=== PATIENT | female | born 1945 | race Caucasian/White ===

== ENCOUNTER → 2016-11-27 | Outpatient (CLI) | payer OTHER | LOC: FIMAGING 14:26 | DX: Z12.31 Encounter for screening mammogram for malignant neoplasm of breast (principal) | CPT/HCPCS: G0202 ==

== ENCOUNTER → 2017-04-15 | Outpatient (CLI) | payer OTHER | LOC: FIMAGING 11:32 | PROVIDERS: ATTEND Internal Medicine | DX: R06.02 Shortness of breath (principal) ==

== ENCOUNTER 2017-05-14 09:03 | Day surgery (SDC) | payer OTHER ==
[2017-05-14] MEDS ORDERED: diphenhydrAMINE 25 MG CAP PO ONE ×2 (09:09→09:41)
[2017-05-14] MEDS ORDERED: MIDAZOLAM 2 MG/2 ML VIAL IVP ONE (09:09)
[2017-05-14] MEDS ORDERED: BENZOCAINE UNIT DOSE SPRAY HURRICAINE MM ONE (09:09)
[2017-05-14] MEDS ORDERED: NS 1,000 ML IV ONE (09:09)
[2017-05-14] MEDS ORDERED: DIAZEPAM 5 MG TAB PO ONE (09:09)
[2017-05-14] MEDS ORDERED: fentaNYL 100 MCG/2 ML INJ IVP ONE (09:09)
[2017-05-14] MEDS ORDERED: FAMOTIDINE 20 MG TAB PO ONE (09:09)
[2017-05-14] MEDS ORDERED: ASPIRIN EC 325 MG TAB PO ONE ×2 (09:09→09:41)
--- NOTE | 2017-05-14 09:35 | CPEKG ---
Heart Rate: 78 RR Interval: 769 P-R Interval: 176 QRSD Interval: 92 QT Interval: 416 QTC Interval: 474 P [place]: 75 QRS [place]: 51 T Wave [place]: 48 EKG Severity - ABNORMAL ECG - EKG Impression: SINUS RHYTHM EKG Impression: MULTIPLE VENTRICULAR PREMATURE COMPLEXES Electronically Signed By: Wagner Martin 14-May-2017 17:15:05
[2017-05-14] MEDS ORDERED: FAMOTIDINE 20 MG TAB ONE (09:41)
[2017-05-14] MEDS ORDERED: DIAZEPAM 5 MG TAB ONE (09:42)
[2017-05-14 09:52] LABS: % IMMATURE GRANULYOCYTES 0.2 % (0.0-1.1); ABSOLUTE IMMATURE GRANULOCYTES 0.01 10^3/uL (0.00-0.10); ADD DIFF? NO; ADD MORPH? NO; ADD SCAN? NO; ATYPICAL LYMPHOCYTE FLAG 0 (0-99); FRAGMENT RBC FLAG 0 (0-99); HEMATOCRIT 40.2 % (38.0-47.0); HEMOGLOBIN 13.5 g/dL (12.6-16.3); LEFT SHIFT FLG 0 (0-99); LIPEMIA HEMOLYSIS FLAG 80 (0-99); MEAN CELL HEMOGLOBIN 32.3 pg (27.9-34.1); MEAN CELL HEMOGLOBIN CONCENTR. 33.6 g/dL (32.4-36.7); MEAN CELL VOLUME 96.2 fL (81.5-99.8); MEAN PLATELET VOLUME 11.7 fL (8.7-11.7); PLATELET CLUMPS FLAG 10 (0-99); PLATELET COUNT 179 10^3/uL (150-400); RED BLOOD CELL COUNT 4.18 10^6/uL (4.18-5.33); RED CELL DISTRIBUTION WIDTH 12.9 % (11.5-15.2)
[2017-05-14 10:00] LABS: INR 1.07 (0.83-1.16); PROTIME(PATIENT) 13.8 SEC (12.0-15.0)
[2017-05-14 10:09] LABS: ANION GAP 12 mEq/L (8-16); CALCIUM 9.8 mg/dL (8.5-10.4); CARBON DIOXIDE 23 mEq/l (22-31); CHLORIDE 103 mEq/L (97-110); CHOLESTEROL 182 mg/dL (140-220); CHOLESTEROL/HDL RATIO 3.43 RATIO (1.00-4.44); CREATININE 0.9 mg/dL (0.6-1.0); GLOMERULAR FILTRATION RATE > 60; GLUCOSE 118 mg/dL (70-100); HIGH DENSITY LIPOPROTEIN 53 mg/dL (40-85); LDL/HDL RATIO 1.66 RATIO (1.00-3.22); LOW DENSITY LIPOPROTEIN 88 mg/dL (80-100); NON-HIGH DENSITY LIPOPROTEIN 129 mg/dL (90-129); POTASSIUM 3.9 mEq/L (3.5-5.2); SODIUM 138 mEq/L (134-144); TRIGLYCERIDE 208 mg/dL (35-135); VERY LOW DENSITY LIPOPROTEINS 41 mg/dL (8-25)
[2017-05-14] MEDS ORDERED: MIDAZOLAM 2 MG/2 ML VIAL ONE ×2 (10:36→11:22)
[2017-05-14] MEDS ORDERED: fentaNYL 100 MCG/2 ML INJ ONE ×2 (10:37→11:22)
[2017-05-14] MEDS ORDERED: LIDOCAINE 1% 300 MG/30 ML SDV ONE (11:22)
[2017-05-14] MEDS ORDERED: IOPAMIDOL (ISOVUE-370) 150 ML BTL IV ONE (11:22)
--- NOTE | 2017-05-14 12:33 | PDDXCAT ---
Diagnostic Cath Note - . Date: 05/14/17 Radiopharmacist: Julio Indication: other (CAD with prior CABG, severe MR with prior MV repair, and NYHA class II to III CHF symptoms) - Procedure Access: right groin Procedure: left heart catheterization, coronary angiography, left ventriculogram , right heart catheterization - Materials Left Heart Cath size: 6F Left Heart Cath materials: standard multipack (JL4, JR4, pigtail) Right Heart Cath size: 7F Right Heart Cath materials: PWP catheter - Findings-Left Heart Catheterization LM: Normal. LAD: Proximal 90%. LCX: Minimal irregularities. RCA: Minimal irregularities. PADRON: PADRON to LAD patent;backfills a septal supervisor telephone clerks and diagonal branch; moderate to severe disease involving the origin and proximal portion of the diagoonal branch. EDP: 28 mmHg LVEF: 60% with severe mitral regurgitation noted. Wall motion: Normal. - Findings-Right Heart Catheterization RA: 12 mmHg RV: 42/10 mmHg PA: 38/22/26 mmHg O2 sat 65.3% PAOP: 24 mmHg with large V-waves. AO: 110/66/82 mmHg O2 sat 96.3% CO: 3.79 L/min CI: 2.2 L/min/sq mtr Complications: None Estimated blood loss: <50ml Closure method: Angioseal Assessment: 1) Normal LV systolic function. 2) Single vessel CAD as described above. 3) Patent PADRON to LAD graft. 4) Severe mitral regurgitation. 5) Mild to moderate pulmonary hypertension.
[2017-05-14] MEDS ORDERED: ATROPINE SULFATE 1 MG/10 ML SYR ONE (12:36)
== END 2017-05-14 17:30 | disposition home or self-care (01) ==
LOC: FCATH 09:03
PROVIDERS: ATTEND Internal Medicine
PROC: B2131ZZ Fluoroscopy of Multiple Coronary Artery Bypass Grafts using Low Osmolar Contrast (ICD-10-PCS; principal; 2017-05-14)
PROC: B2151ZZ Fluoroscopy of Left Heart using Low Osmolar Contrast (ICD-10-PCS; principal; 2017-05-14)
PROC: 4A023N8 Measurement of Cardiac Sampling and Pressure, Bilateral, Percutaneous Approach (ICD-10-PCS; principal; 2017-05-14)
DX: I25.10 Atherosclerotic heart disease of native coronary artery without angina pectoris (principal); I50.32 Chronic diastolic (congestive) heart failure; I05.9 Rheumatic mitral valve disease, unspecified; R53.82 Chronic fatigue, unspecified; I27.2 Other secondary pulmonary hypertension; F32.9 Major depressive disorder, single episode, unspecified; K21.9 Gastro-esophageal reflux disease without esophagitis; E78.5 Hyperlipidemia, unspecified; E55.9 Vitamin D deficiency, unspecified; Z95.1 Presence of aortocoronary bypass graft; Z95.4 Presence of other heart-valve replacement
CPT/HCPCS: J0461; J1644; J2250; J3010; Q9967

== ENCOUNTER 2017-06-28 15:55 | Inpatient (IN) | payer OTHER ==
[2017-06-28] MEDS ORDERED: NS 1,000 ML IV ONE (16:01)
--- NOTE | 2017-06-28 16:23 | CPEKG ---
Heart Rate: 113 RR Interval: 531 P-R Interval: 132 QRSD Interval: 86 QT Interval: 336 QTC Interval: 461 P [place]: 93 QRS [place]: 74 T Wave [place]: 234 EKG Severity - OTHERWISE NORMAL ECG - EKG Impression: SINUS TACHYCARDIA Electronically Signed By: Breanna Burks 28-Jun-2017 23:05:08
[2017-06-28 16:26] LABS: % IMMATURE GRANULYOCYTES 0.7 % (0.0-1.1); ADD DIFF? NO; ADD MORPH? NO; ADD SCAN? NO; ATYPICAL LYMPHOCYTE FLAG 10 (0-99); FRAGMENT RBC FLAG 0 (0-99); HEMATOCRIT 32.2 % (38.0-47.0); HEMOGLOBIN 10.3 g/dL (12.6-16.3); LEFT SHIFT FLG 0 (0-99); LIPEMIA HEMOLYSIS FLAG 80 (0-99); MEAN CELL HEMOGLOBIN 31.5 pg (27.9-34.1); MEAN CELL VOLUME 98.5 fL (81.5-99.8); MEAN PLATELET VOLUME 10.4 fL (8.7-11.7); PLATELET CLUMPS FLAG 0 (0-99); PLATELET COUNT 368 10^3/uL (150-400); RED BLOOD CELL COUNT 3.27 10^6/uL (4.18-5.33); RED CELL DISTRIBUTION WIDTH 15.9 % (11.5-15.2)
--- NOTE | 2017-06-28 16:26 | EDPHY ---
H & P Time Seen by Provider: 06/28/17 16:01 HPI/ROS: CHIEF COMPLAINT: Rectal bleeding, dizziness HISTORY OF PRESENT ILLNESS: 71-year-old female CABG x2, s/p MVR 30 days ago, on Coumadin, presents with rectal bleeding. Onset of black stools this morning , several episodes since then. Abdominal cramping prior to bowel movements, which resolves after having a bowel movement. Associated with generalized lack of appetite, weakness, dizziness and 1 near syncopal episode. 1 episode of dry heaves while in Dr. Garcia's office. REVIEW OF SYSTEMS: Constitutional: No fever, no chills Eyes: No visual changes ENT: No sore throat Respiratory: No cough, no shortness of breath Cardiac: No chest pain Genitourinary: no dysuria Musculoskeletal: No leg pain or swelling Skin: No rash Neurological: No headache Psychiatric: No depression Past Medical/Surgical History: CABG x2 Mitral valve replacement Atrial fibrillation Social History: Smoking Status: Former smoker Physical Exam: General Appearance: Alert, pale-appearing Eyes: Pupils equal and round, conjunctival pallor ENT, Mouth: Mucous membranes dry Neck: Normal inspection Respiratory: Lungs are clear to auscultation Cardiovascular: Regular tachycardia Gastrointestinal: Abdomen is soft and nontender Rectal: Black stool present Neurological: A&O, nonfocal exam, gait not assessed Skin: Warm and dry, no rash Extremities: Nontender, no pedal edema Psychiatric: Mood and affect normal Constitutional: Initial Vital Signs Temperature (C) 36.4 C 06/28/17 15:59 Heart Rate 120 H 06/28/17 15:59 Respiratory Rate 20 06/28/17 15:59 Blood Pressure 87/64 L 06/28/17 15:59 O2 Sat (%) 95 06/28/17 15:59 O2 Delivery Mode Room Air Allergies/Adverse Reactions: epinephrine Allergy (Verified 06/28/17 18:00) ? DECREASED BLOOD PRESSURE phenobarbital Allergy (Verified 06/28/17 18:00) Rash Home Medications: Medication Instructions Recorded Citalopram [celeXA] 20 mg PO HS 11/21/11 Acetaminophen [Tylenol 325mg (*)] 325 mg PO Q4H PRN 06/28/17 Amiodarone HCl [Pacerone (*)] 200 mg PO DAILY 06/28/17 Aspirin [Aspirin 81mg (*)] 81 mg PO DAILY 06/28/17 Cholecalciferol Vit D3 [Vitamin D3 5,000 units PO HS 06/28/17 (*)] Estradiol [Estradiol 1 MG (*)] 0.5 mg PO DAILY 06/28/17 Ferrous Sulfate [Ferrous Sulf 325 325 mg PO DAILY 06/28/17 MG (*)] Furosemide [Lasix 40 MG (*)] 40 mg PO DAILY 06/28/17 LORazepam [Lorazepam] 0.5 mg PO HS PRN 06/28/17 Levothyroxine [Synthroid 75 mcg 75 mcg PO DAILY06 06/28/17 (*)] Potassium Chloride 20 meq PO DAILY 06/28/17 Pravastatin Sodium 20 mg PO HS 06/28/17 Spironolactone [Aldactone 25 MG 25 mg PO DAILY 06/28/17 (*)] Warfarin Pharmacy To Dose 2 - 2.5 mg PO DAILY 06/28/17 oxyCODONE IR [Oxycodone Ir (*)] 5 mg PO Q4H PRN 06/28/17 Medical Decision Making - Diagnostics EKG Interpretation: EKG interpreted by me reveals sinus tachycardia, rate 113, diffuse T-wave changes. ED Course/Re-evaluation: This patient presents with an upper GI bleed. Initial blood pressure 87/64, heart rate 120. Repeat blood pressure 119/74, heart rate 110. IV normal saline 1 L and Protonix 80 mg IV given. I spoke with Dr. Garcia, the patient's physicist light and optics, as this patient will likely need to have her Coumadin reversed. He advises giving her Vitamin K and Kcentra to reverse the Coumadin quickly, if the INR is still supratherapeutic. The patient clearly understands the risks of this decision and agrees. INR 5.8. Kcentra and Vitamin K 10 mg IV ordered. The hospitalist service was consulted for admission to the ICU. The patient's blood pressure stabilized after her initial hypertension on arrival. She received 1 L of normal saline. She did not require a blood transfusion. GI of the [facility] was consulted and will see the patient in the hospital. Protonix drip and NPO after midnight. I spent a total of 40 minutes of critical care time in obtaining history, performing a physical exam, bedside monitoring of interventions, collecting and interpreting tests and discussion with consultants but not including time spent performing procedures. Differential Diagnosis: Differential diagnosis includes though not limited to esophageal varices, peptic ulcer disease, AVM, lower GI bleeding sources such as diverticular bleed. - Data Points Laboratory Results: Laboratory Results 06/28/17 16:15 06/28/17 16:15 06/28/17 16:15 Patient ABO/Rh A POSITIVE Antibody Screen NEGATIVE Crossmatch IS Only See Detail Medications Given: Acetaminophen (Tylenol) 650 mg PO Q4 PRN PRN Reason: Pain, Mild/Fever, Can Take PO Stop: 12/25/17 18:53 Last Admin: 06/29/17 13:08 Dose: 325 mg Amiodarone HCl (Amiodarone Hcl) 200 mg PO DAILY KASHIF Stop: 12/26/17 08:59 Last Admin: 06/29/17 08:04 Dose: 200 mg Citalopram Hydrobromide (Celexa) 20 mg PO HS KASHIF Stop: 12/25/17 20:59 Last Admin: 06/28/17 20:59 Dose: 20 mg Estradiol (Estradiol) 0.5 mg PO DAILY KASHIF Stop: 12/26/17 08:59 Last Admin: 06/29/17 08:04 Dose: 0.5 mg Ferrous Sulfate (Ferrous Sulfate) 325 mg PO DAILY KASHIF Stop: 12/26/17 08:59 Last Admin: 06/29/17 08:04 Dose: 325 mg Pantoprazole Sodium 80 mg/ (Sodium Chloride) 100 mls @ 10 mls/hr IV Q10H KASHIF Stop: 12/25/17 18:59 Last Admin: 06/29/17 04:00 Dose: 100 mls Sodium Chloride (Ns) 1,000 mls @ 125 mls/hr IV CONT KASHIF Stop: 12/25/17 18:59 Last Admin: 06/29/17 04:00 Dose: 1,000 mls Levothyroxine Sodium (Synthroid) 75 mcg PO DAILY06 KASHIF Stop: 12/26/17 05:59 Last Admin: 06/29/17 06:24 Dose: Not Given Ondansetron HCl (Zofran) 4 mg IVP Q4 PRN PRN Reason: Nausea/Vomiting, Can't Take PO Stop: 12/25/17 18:53 Last Admin: 06/29/17 09:48 Dose: 4 mg Oxycodone HCl (Oxycodone Ir) 5 mg PO Q4H PRN PRN Reason: Pain, Severe Stop: 07/08/17 18:47 Last Admin: 06/29/17 13:08 Dose: 5 mg Pravastatin Sodium (Pravachol) 20 mg PO HS KASHIF Stop: 12/25/17 20:59 Last Admin: 06/28/17 20:59 Dose: 20 mg Discontinued Medications Sodium Chloride (Ns) 1,000 mls @ 0 mls/hr IV EDNOW ONE; Wide Open PRN Reason: Protocol Stop: 06/28/17 16:02 Last Admin: 06/28/17 17:11 Dose: 1,000 mls Pantoprazole Sodium 80 mg/ (Sodium Chloride) 100 mls @ 200 mls/hr IV EDNOW ONE Stop: 06/28/17 16:56 Last Admin: 06/28/17 17:08 Dose: 100 mls Phytonadione 10 mg/ Sodium (Chloride) 51 mls @ 102 mls/hr IV ONCE ONE Stop: 06/28/17 17:25 Last Admin: 06/28/17 17:32 Dose: 51 mls Pantoprazole Sodium 80 mg/ (Sodium Chloride) 100 mls @ 10 mls/hr IV Q10H [facility] Stop: 12/25/17 17:59 Last Admin: 06/28/17 19:54 Dose: Not Given Prothrombin Complex Concent ( Human) 2,400 unit/ IV Miscellaneous Supplies 96 mls @ 0 mls/hr IV ONCE ONE; Per Protocol PRN Reason: Protocol Stop: 06/28/17 18:01 Last Admin: 06/28/17 18:20 Dose: 96 mls Departure - Departure Disposition: [facility] Acute Clinical Impression: Upper GI hemorrhage, Over-anticoagulated Condition: Serious
[2017-06-28] MEDS ORDERED: PANTOPRAZOLE SODIUM 80 MG in NS 100 ML IV ONE (16:27)
[2017-06-28 16:53] LABS: PROTIME(PATIENT) 54.8 SEC (12.0-15.0)
[2017-06-28 16:55] LABS: INR 5.98 (0.83-1.16)
[2017-06-28] MEDS ORDERED: PHYTONADIONE 10 MG in NS 50 ML IV ONE (16:56)
[2017-06-28] MEDS ORDERED: *PHM DO NOT USE-KCENTRA IV 35 UNITS/KG (INR 4-6) PTD MISC SCH (17:00)
[2017-06-28 17:07] LABS: ALANINE AMINOTRANSFERASE 27 IU/L (9-52); ALBUMIN 4.3 g/dL (3.5-5.0); ALKALINE PHOSPHATASE 78 IU/L (38-126); ANION GAP 19 mEq/L (8-16); ASPARTATE AMINOTRANSFERASE 24 IU/L (14-46); BILIRUBIN,TOTAL 0.5 mg/dL (0.1-1.4); BILIRUBIN-CONJUGATED 0.3 mg/dL (0.0-0.5); BILIRUBIN-UNCONJUGATED 0.2 mg/dL (0.0-1.1); CARBON DIOXIDE 18 mEq/l (22-31); CHLORIDE 101 mEq/L (97-110); CREATININE 1.1 mg/dL (0.6-1.0); GLOMERULAR FILTRATION RATE 49; GLUCOSE 217 mg/dL (70-100); POTASSIUM 4.6 mEq/L (3.5-5.2); SODIUM 138 mEq/L (134-144)
--- NOTE | 2017-06-28 17:21 | GCON ---
[f rep st] CONSULTATION CARDIOLOGY CONSULT DATE OF CONSULTATION: 06/28/2017 REASON FOR CONSULTATION: Evaluate woman with complex cardiac surgery history and paroxysmal atrial f ibrillation with probable upper GI bleed going on. HISTORY OF PRESENT ILLNESS: The patient is a 71-year-old woman with the following cardiac and medica l problems. She initially had a CABG and mitral valve repair in 2004. 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 She developed recurrent heart failure with severe mitral and tricuspid insufficiency. She had a redo sternotomy on 05/30/2017 with a bioprosthetic mitral valve replacement and tricuspid v alve repair. Catheterization done before surgery demonstrated mild nonobstructive coronary artery di sease. Postoperatively, she had problems with anemia and paroxysmal atrial fibrillation and sinus br adycardia. This surgery was done at [facility]. She has been on amiodarone and feeling better and getting stronger. An INR yesterday was 6.0. This morning she awoke with nausea and abdominal pain. She has had some nonbloody emesis. She reports 4-5 black stools during the day. She is tired and weak. Sh e reports no chest pain or shortness of breath. PAST MEDICAL HISTORY: 1. Coronary artery disease, status post remote CABG. 2. Valvular heart failure, status post recent redo sternotomy with bioprosthetic mitral valve replac ement and tricuspid valve repair. 3. Anemia. 4. Paroxysmal atrial fibrillation with component of sinus bradycardia. ALLERGIES: Epinephrine, phenobarbital. CURRENT MEDICATIONS: Amiodarone 200 mg per day, aspirin 81 mg per day, Lasix 40 mg per day, KCl 20 m Eq per day, pravastatin 20 mg at bedtime, Aldactone 25 mg per day, warfarin 2-2.5 mg daily for goal I NR of 2.0-3.0. Rest of medications are noncardiac. SOCIAL HISTORY: The patient is . She does not smoke or use alcohol. FAMILY HISTORY: Unremarkable for premature heart failure. REVIEW OF SYSTEMS: The patient reports no fevers and chills. She has no cough or hemoptysis. She r eports no TIA or CVA symptoms. Rest of 10-point review of systems is negative. PHYSICAL EXAM: VITAL SIGNS: Weight 69.0 kg, pulse 105 and regular, blood pressure 110/72, respirati ons 28, afebrile. GENERAL: A pale-appearing woman in no acute distress without chest pain or using excess respiratory muscles. EYES: Pupils equal reactive to light. ENT: Oral mucosa with no cyanos is. NECK: Jugular venous pressure to 6-7 cm. Carotid pulses 2+ bilaterally with no obvious bruits. No thyromegaly noted. LUNGS: Clear to auscultation bilaterally without rales, rhonchi, or wheezin g. HEART: Normal PMI. Tachycardic. Regular rate with 1/6 nonradiating systolic murmur. ABDOMEN: Soft and nontender. No guarding or rebound. No ascites. EXTREMITIES: 2+ peripheral pulses includ ing femoral and pedal pulses. No edema noted. MUSCULOSKELETAL: No nuchal rigidity. SKIN: Mildly pale, but no active bleeding. ASSESSMENT: A 71-year-old woman with 2 previous sternotomies, most recently bioprosthetic mitral angel ve replacement and tricuspid valve repair with normal LV function and paroxysmal atrial fibrillation. Feeling her pulse and listening to her heart, I think she is in sinus tachycardia. Clinically, I a m concerned she is having an upper GI bleed, possibly secondary to her INR. RECOMMENDATIONS: 1. Would recheck stat CBC and PT/INR. 2. The patient may need IV vitamin K or FFP. 3. For now would hold her Lasix and potassium. 4. Would continue on amiodarone and pravastatin. 5. May need GI consult for upper endoscopy. /[id number]/MODL
[2017-06-28] MEDS ORDERED: PANTOPRAZOLE SODIUM 80 MG in NS 100 ML IV SCH (18:00)
[2017-06-28] MEDS ORDERED: HUMAN PROTHROMBIN COMPLX IV ONE (18:00)
[2017-06-28] MEDS ORDERED: LORazepam 0.5 MG TAB PO PRN (18:48)
[2017-06-28] MEDS ORDERED: ONDANSETRON 4 MG/2 ML VIAL IVP PRN (18:54)
[2017-06-28] MEDS ORDERED: PROMETHAZINE HCL 25 MG/ML INJ IVP PRN (18:54)
[2017-06-28] MEDS: PANTOPRAZOLE SODIUM 80 MG in NS 100 ML IV SCH ×2 (19:38→20:29)
[2017-06-28] MEDS: NS 1,000 ML IV SCH (19:48)
--- NOTE | 2017-06-28 19:52 | GHP ---
[f rep st] HISTORY AND PHYSICAL DATE OF ADMISSION: 06/28/2017 CHIEF COMPLAINT: Black stool. HISTORY: The patient is a 71-year-old female who 1 month ago had a [facility]. She did have some postoperative atrial fibrillation and is now on anticoagulation with warfarin. Her INR yesterday was 6. This morning she had a sched uled appointment in the office of Dr. Garcia. In his office she was nauseated and retching. There wa s no hematemesis. There was no abdominal pain. She did have 4-5 black stools starting this morning. When she got up this morning she was suddenly extraordinarily weak, tired. She could barely walk a nd she almost passed out. There was no chest pain or shortness of breath. In the emergency room she was given normal saline, IV Protonix and Kcentra and vitamin K to reverse h er INR which is still quite elevated. PAST MEDICAL HISTORY: 1. Coronary artery disease, status post CABG 2004 with a mitral valve repair. 2. Redo mitral valve replacement with tricuspid valve repair May 30, 2017. 3. Preoperative cardiac catheterization showed nonobstructive coronary artery disease, which was mil d. 4. Paroxysmal atrial fibrillation. MEDICATIONS: Please see computer record for full detailed list. ALLERGIES: Epinephrine and phenobarbital. SOCIAL HISTORY: No smoking. No alcohol. She lives with her . REVIEW OF SYSTEMS: A complete review of systems was obtained. Review of systems was negative regard ing constitutional, HEENT, GI, pulmonary, cardiovascular, , hematology, skin, musculoskeletal, endo crine, psych save for positives as negative as above in HPI. FAMILY HISTORY: Reviewed, noncontributory to the presenting complaint. PHYSICAL EXAMINATION: GENERAL: A well-developed, well-nourished female in no acute distress. VITAL SIGNS: Temperature is 36.4, pulse 120, blood pressure 87/64, saturating 97% on room air. HEENT: E yes: Normal conjunctivae. Pupils react to light. ENT: Normal ears and nose. Hearing intact. Nor mal lips and teeth. Oropharynx moist. NECK: Trachea midline. No thyromegaly. CHEST: Normal resp iratory effort. Lungs clear to auscultation bilaterally. CARDIOVASCULAR: Regular rhythm. No lower extremity edema. ABDOMEN: Soft, nontender. No hepatosplenomegaly. SKIN: Warm, dry, intact. No r adán. MUSCULOSKELETAL: No cyanosis or clubbing. Strength 5/5 upper and lower extremities. NEUROLOG IC: Cranial nerves intact. Normal sensation to light touch. PSYCH: Awake, alert oriented x3. Nor mal mood and affect. Normal judgment and insight. Normal memory. LABORATORY: White count 14.12, hematocrit 32.2, platelets 368. Sodium 138, potassium 4.6, chloride 101, bicarb 18, BUN 57, creatinine 1.1. Glucose 217. LFTs are normal. INR is 5.98. IMAGING: EKG viewed by me. My personal interpretation is sinus tachycardia, inferolateral T-wave in versions. This case was discussed with Dr. Burks. She has spoken with Gastroenterology and they are planning EGD in the morning and request a Protonix drip overnight. ASSESSMENT/PLAN: 1. Upper gastrointestinal bleed. Will hydrate with IV fluid and follow serial hemoglobin and hemato crit overnight. We will make her n.p.o. after midnight for EGD in the morning. Will prescribe a Pro tonix drip. 2. Hypotension and tachycardia secondary to hypovolemia as a result of her gastrointestinal bleed. She is being admitted to ICU for close monitoring and IV fluid as above. She is already improved aft er initial resuscitation in the emergency room. 3. Bioprosthetic mitral valve replacement and tricuspid valve repair. This surgery was less than 1 month ago. This appears stable. 4. Atrial fibrillation. Continue amiodarone. Her warfarin has been reversed due to acute bleeding with Kcentra and vitamin K. 5. Coronary artery disease, status post coronary artery bypass graft. Preoperative cardiac catheter ization very recently did not show any coronary artery disease. Her EKG is different compared with o ur last one on file; however, this one was performed pre-CT surgery. I doubt she is having acute isc hemia at this time. 6. Deep venous thrombosis prophylaxis. Since she is bleeding, we will use sequential compression de vices only. CODE STATUS: Full. ADMISSION STATUS: Will admit to inpatient. Anticipate greater than 2 midnights given severity of th e illness on presentation. /[id number]/MODL
[2017-06-28] MEDS: oxyCODONE IR 5 MG TAB PO PRN (20:59)
[2017-06-28] MEDS: CITALOPRAM 20 MG TAB PO SCH (20:59)
[2017-06-28] MEDS: PRAVASTATIN SODIUM 20 MG TAB PO SCH (20:59)
[2017-06-28] MEDS: ACETAMINOPHEN 325 MG TAB PO PRN (21:00)
[2017-06-29 00:42] LABS: HEMOGLOBIN 7.5 g/dL (12.6-16.3)
[2017-06-29] MEDS: NS 1,000 ML IV SCH ×2 (04:00→23:08)
[2017-06-29] MEDS: PANTOPRAZOLE SODIUM 80 MG in NS 100 ML IV SCH ×2 (04:00→16:58)
[2017-06-29 05:34] LABS: % IMMATURE GRANULYOCYTES 0.5 % (0.0-1.1); ABSOLUTE IMMATURE GRANULOCYTES 0.04 10^3/uL (0.00-0.10); ADD DIFF? NO; ADD MORPH? NO; ADD SCAN? NO; ATYPICAL LYMPHOCYTE FLAG 20 (0-99); FRAGMENT RBC FLAG 0 (0-99); HEMATOCRIT 22.4 % (38.0-47.0); HEMOGLOBIN 7.2 g/dL (12.6-16.3); LEFT SHIFT FLG 0 (0-99); LIPEMIA HEMOLYSIS FLAG 80 (0-99); MEAN CELL HEMOGLOBIN 31.7 pg (27.9-34.1); MEAN CELL HEMOGLOBIN CONCENTR. 32.1 g/dL (32.4-36.7); MEAN CELL VOLUME 98.7 fL (81.5-99.8); MEAN PLATELET VOLUME 9.9 fL (8.7-11.7); PLATELET CLUMPS FLAG 0 (0-99); PLATELET COUNT 210 10^3/uL (150-400); RED BLOOD CELL COUNT 2.27 10^6/uL (4.18-5.33); RED CELL DISTRIBUTION WIDTH 16.5 % (11.5-15.2)
[2017-06-29 05:42] LABS: INR 1.22 (0.83-1.16); PROTIME(PATIENT) 15.4 SEC (12.0-15.0)
[2017-06-29 06:00] LABS: ANION GAP 9 mEq/L (8-16); CALCIUM 8.6 mg/dL (8.5-10.4); CARBON DIOXIDE 22 mEq/l (22-31); CHLORIDE 109 mEq/L (97-110); CREATININE 0.8 mg/dL (0.6-1.0); GLOMERULAR FILTRATION RATE > 60; GLUCOSE 115 mg/dL (70-100); POTASSIUM 3.7 mEq/L (3.5-5.2); SODIUM 140 mEq/L (134-144)
[2017-06-29] MEDS: LEVOTHYROXINE 75 MCG TAB PO SCH (06:24)
[2017-06-29] MEDS: FERROUS SULFATE 325 MG TAB PO SCH (08:04)
[2017-06-29] MEDS: AMIODARONE HCL 200 MG TAB PO SCH (08:04)
[2017-06-29] MEDS: ESTRADIOL 1 MG TAB PO SCH (08:04)
--- NOTE | 2017-06-29 09:49 | GCON ---
[f rep st] CONSULTATION DATE OF CONSULTATION: 06/29/2017 CHIEF COMPLAINT: Melena. HISTORY OF PRESENT ILLNESS: I am asked to see this patient in consultation by Dr. Brito for chief complaint of melena. The patient is a 71-year-old, with a complex cardiac history, with coronary artery disease, valvular disease, and atrial fibrillation. Had a valve repair in 2004, and then redo sternotomy and valvular repair in May 2017, requires long-term anticoagulation. 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 She did not actually vomit, and there was no hematemesis. She has never had history of GI bleeding before or peptic ulcer disease to her knowledge. No GERD symptoms. She does take a baby aspirin, but no additional NSAIDs. No diarrhea or constipation. She did have a colonoscopy recently with Dr. Brown in October 2015, with removal of an adenomatous polyp. ALLERGIES: Epinephrine and phenobarbital. MEDICATIONS: Medicines at home are oxycodone, Coumadin, spironolactone, pravastatin, Synthroid, lorazepam, Lasix, Celexa, baby aspirin, amiodarone and Tylenol. PAST MEDICAL HISTORY: As above, paroxysmal atrial fibrillation, coronary artery disease, valvular disease, tubular adenomatous polyp. SOCIAL HISTORY: She does not use alcohol. FAMILY HISTORY: Negative for ulcers. REVIEW OF SYSTEMS: I have performed a complete review of systems, which is negative, except for pertinent positives and negatives as noted above in the HPI. PHYSICAL EXAM: VITAL SIGNS: Afebrile at 36.8, BP 104/63, pulse 83. GENERAL: She is alert and oriented. No apparent distress. EYES: Nonicteric. HEENT: Has no oral lesions. CARDIOVASCULAR: Regular rate and rhythm. CHEST: Clear to auscultation. ABDOMEN: Soft, nontender. No hepatosplenomegaly. NEUROLOGIC : Grossly nonfocal. SKIN: No rashes. LABORATORY DATA: On presentation her hemoglobin was 10.3, it is 7.2 this morning, with hematocrit of 22.4, white count 8, platelets 210. ProTime on admission was 54.8, with an INR 5.98, after correction her PT is now 15.4, with an INR 1.22. BUN is elevated on admission at 57, with a creatinine of 1.1, but LFTs are normal. ASSESSMENT: Melenic stools with elevated BUN, consistent with upper GI bleeding. This was complicated by patient's Coumadin use, which is somewhat over anticoagulated. Differential diagnosis would include Shantell-Garcia tear, given the history of retching, also consider peptic ulcer disease, gastritis, esophagitis, arteriovenous malformations, etc. I would recommend upper endoscopy. Overall patient would be high risk because of her long-term anticoagulation and underlying cardiac disease. Also given her narcotic and Versed use, but I think the benefits would outweigh the risks in the setting of acute bleed. PLAN: Continue with supportive care. We will plan for upper endoscopy today for evaluation. Further recommendations to follow. Thank you for this consult. /[id number]/MODL MTDD
--- NOTE | 2017-06-29 10:58 | PDCARPN ---
Cardiology Progress Note Chief Complaint: UGIB/recent PAF on Amiodarone and Warfarin Assessment/Plan: Assessment: 71-y/o F with PMH CABG/MV repair in 2004, redo sternotomy after developing severe MR/TR and underwent bioMVR/ TV repair 05/31/17. Post-op did have some PAF for which she had been started on Warfarin. In outpatient setting, she was started on Amiodarone for ongoing bouts of AF. Presented to see Dr. Garcia yesterday for routine clinical evaluation . Recent INR of 6. Also had recent nonbloody emesis and 4-5 melenic stools. Sent to ED fro clinic and now admitted. #. UGIB: pt with EGD today with nonbleeding ulcer INR reversed and Warfarin held #. PAF: currently in SR stay on Amiodarone reviewed with Dr. Garcia/ once H/H stable, we would prefer she start ASA 81 mg daily possible resumption of full AC in 4 weeks [id number] of 3 #. CAD: no symptoms suggestive of angina on statin and ASA as outpt #. ABL anemia: per IM and GI #. VHD: recent bioMVR and TV repair Plan: Resume ASA once H/H are stable 06/29/17 13:02 Subjective: No pain, dyspnea, edema. Nausea improved with antiemetics. Objective: Vital Signs (8 Hrs) Temp Pulse Resp BP Pulse Ox 06/29/17 10:00 83 14 122/57 H 97 06/29/17 08:00 98.2 F 83 18 104/63 94 06/29/17 06:00 82 16 99/69 L 93 06/29/17 04:00 98.2 F 90 16 135/69 H 94 06/29/17 03:00 87 15 115/54 L 92 Intake/Output (24 Hrs) 06/28/17 06/29/17 06/30/17 05:59 05:59 05:59 Intake Total 2788.2 Output Total 650 200 Balance 2138.2 -200 Intake: Oral (ml) 300 IV Intake (ml) 1246 IV Infused (ml) 1242.2 Pantoprazole Sodium 80 mg 92.2 In Ns 100 ml @ 10 mls/hr IV Q10H KASHIF Rx#: [id number] Output: Urine (ml) 650 200 Toilet 650 200 Other: Weight 71.078 kg Number of Voids 1 Result Diagrams: 06/29/17 12:00 06/29/17 05:20 EKG: ST with diffuse ST-T w abn Telemetry: NSR - Physical Exam Constitutional: no apparent distress Ears, Nose, Mouth, Throat: moist mucous membranes Cardiovascular: regular rate and rhythm Skin: no rashes Neurologic: AAOx3 Psychiatric: cooperative, interactive ICD10 Worksheet Patient Problems: Problems Problem Status Onset Upper GI hemorrhage Acute Over-anticoagulated Acute
[2017-06-29] MEDS ORDERED: MIDAZOLAM 2 MG/2 ML VIAL ONE (11:01)
[2017-06-29] MEDS ORDERED: PROPOFOL 200 MG/20 ML VIAL ONE (11:01)
[2017-06-29] MEDS ORDERED: NALOXONE HCL 0.4 MG/ML INJ IVP PRN (11:15)
[2017-06-29] MEDS ORDERED: ALBUTEROL 3 ML DEYVIAL IH PRN (11:15)
[2017-06-29] MEDS ORDERED: fentaNYL 100 MCG/2 ML INJ IVP PRN (11:15)
--- NOTE | 2017-06-29 11:15 | PDANEPAE ---
ANE Past Medical History - Pulmonary History Hx Oxygen in Use at Home: No Hx Sleep Apnea: No Sleep Apnea Screening Result - Last Documented: Negative - Endocrine History Hx Diabetes: No ANE Review of Systems Review of Systems: ANE Patient History - Allergies Allergies/Adverse Reactions: epinephrine Allergy (Verified 06/28/17 18:00) ? DECREASED BLOOD PRESSURE phenobarbital Allergy (Verified 06/28/17 18:00) Rash - Home Medications Home Medications: Citalopram [celeXA] 20 mg PO HS 11/21/11 [Last Taken 06/27/17] Acetaminophen [Tylenol 325mg (*)] 325 mg PO Q4H PRN 06/28/17 [Last Taken ] Amiodarone HCl [Pacerone (*)] 200 mg PO DAILY 06/28/17 [Last Taken 06/28/17] Aspirin [Aspirin 81mg (*)] 81 mg PO DAILY 06/28/17 [Last Taken 06/28/17] Cholecalciferol Vit D3 [Vitamin D3 (*)] 5,000 units PO HS 06/28/17 [Last Taken 06/27/17] Estradiol [Estradiol 1 MG (*)] 0.5 mg PO DAILY 06/28/17 [Last Taken 06/28/17] Ferrous Sulfate [Ferrous Sulf 325 MG (*)] 325 mg PO DAILY 06/28/17 [Last Taken 06/28/17] Furosemide [Lasix 40 MG (*)] 40 mg PO DAILY 06/28/17 [Last Taken 06/28/17] LORazepam [Lorazepam] 0.5 mg PO HS PRN 06/28/17 [Last Taken Unknown] Levothyroxine [Synthroid 75 mcg (*)] 75 mcg PO DAILY06 06/28/17 [Last Taken ] Potassium Chloride 20 meq PO DAILY 06/28/17 [Last Taken 06/28/17] Pravastatin Sodium 20 mg PO HS 06/28/17 [Last Taken 06/27/17] Spironolactone [Aldactone 25 MG (*)] 25 mg PO DAILY 06/28/17 [Last Taken ] Warfarin Pharmacy To Dose 2 - 2.5 mg PO DAILY 06/28/17 [Last Taken 06/26/17] oxyCODONE IR [Oxycodone Ir (*)] 5 mg PO Q4H PRN 06/28/17 [Last Taken 06/28/17] - NPO status NPO Since - Liquids (Date): 06/29/17 NPO Since - Liquids (Time): 00:00 NPO Since - Solids (Date): 06/29/17 NPO Since - Solids (Time): 00:00 - Smoking Hx Smoking Status: Former smoker ANE Labs/Vital Signs - Labs Result Diagrams: 06/29/17 05:20 06/29/17 05:20 - Vital Signs Blood Pressure: 122/57 Heart Rate: 83 Respiratory Rate: 14 O2 Sat (%): 97 Height: 157.48 cm Weight: 71.078 kg ANE Physical Exam - Airway Mallampati Score: Class 1 Mouth exam: normal dental/mouth exam - Pulmonary Pulmonary: no respiratory distress, no rales or rhonchi, clear to auscultation, reduced air movement - Cardiovascular Cardiovascular: regular rate and rhythym, no murmur, rub, or gallop - ASA Status ASA Status: III ANE Anesthesia Plan Anesthesia Plan: GA with mask
--- NOTE | 2017-06-29 11:15 | GIREPORT ---
Formerly [facility] Surgical Services - Endoscopy Department Patient Name: Maria M Santiago Procedure Date: 06/29/2017 10:53 AM Patient Type: Inpatient Attending MD/ ER Physician: Gay Cortez MD Procedure: Upper GI endoscopy Indications: Acute post hemorrhagic anemia, Melena Providers: Gay Cortez MD Medicines: Monitored Anesthesia Care Complications: No immediate complications. Description of Procedure: After obtaining informed consent, the endoscope was passed under direct vision. Throughout the procedure, the patient's blood pressure, pulse, and oxygen saturations were monitored continuous ly. The Endoscope was introduced through the mouth, and advanced to the second part of duodenum. The upper GI endoscopy was accomplished without difficulty. The patient tolerated the procedure well . Findings: The esophagus was normal. One non-bleeding cratered gastric ulcer with no stigmata of bleeding was found in the gastric an trum. The lesion was 5 mm in largest dimension. Biopsies were taken with a cold forceps for histology. Estimated blood loss was minimal. The examined duodenum was normal. Estimated Blood Loss: Estimated blood loss was minimal. Post Op Diagnosis: - Normal esophagus. - Non-bleeding gastric ulcer with no stigmata of bleeding. Biopsied. Low risk for rebleeding. - Normal examined duodenum. Recommendation: - Await pathology results. - Clear liquid diet. - Can change to PO PPI once taking PO well. - Monitor H+H until stable. Then can restart anticoagulation. - Continue present medications. - Return patient to ICU for ongoing care. Attending Participation: I personally performed the entire procedure. Gay Cortez MD Gay Cortez MD 06/29/2017 11:14:56 AM Number of Addenda: 0 Note Initiated On: 06/29/2017 10:53 AM [email or web address]
--- NOTE | 2017-06-29 11:41 | POSTANESTH ---
Post Anesthetic Evaluation Cardiovascular Status: Normal, Stable Respiratory Status: Normal, Stable Level of Consciousness/Mental Status: Can Participate in Eval Pain Control: Adequate, Prn Tx Ordered Nausea/Vomiting Control: Adequate, Prn Tx Ordered Complications Possibly Related to Anesthesia: None Noted
--- NOTE | 2017-06-29 12:08 | HOSPPROG ---
Hospitalist Progress Note Assessment/Plan: # UGIB s/p EGD with non-bleeding gastric ulcer - cont protonix - ok to restart AC per GI when stable # ABLA - follow H/H, transfuse for hgb<7 # coagulopathy - reversed # a-fib, currently in sinus - cont amiodarone, hold warfarin # VHD - recent bioprosthetic MVR with TV repair # CAD - no angina Subjective: s/p EGD today Objective: Vital Signs Temp Pulse Resp BP Pulse Ox 36.8 C 82 14 116/64 96 06/29/17 08:00 06/29/17 12:00 06/29/17 12:00 06/29/17 12:00 06/29/17 12:00 Laboratory Results 06/29/17 05:20 06/29/17 05:20 06/28/17 06/29/17 06/30/17 05:59 05:59 05:59 Intake Total 2788.2 Output Total 650 200 Balance 2138.2 -200 PT 15.4 SEC (12.0-15.0) H D 06/29/17 05:20 INR 1.22 (0.83-1.16) H 06/29/17 05:20 high risk - Physical Exam Constitutional: no apparent distress, appears nourished Cardiovascular: regular rate and rhythym, no murmur, rub, or gallop Respiratory: no respiratory distress, no rales or rhonchi, clear to auscultation Gastrointestinal: normoactive bowel sounds, soft, non-tender abdomen ICD10 Worksheet Patient Problems: Problems Problem Status Onset Upper GI hemorrhage Acute Over-anticoagulated Acute
[2017-06-29 12:20] LABS: HEMATOCRIT 21.9 % (38.0-47.0)
[2017-06-29] MEDS: oxyCODONE IR 5 MG TAB PO PRN ×2 (13:08→22:21)
[2017-06-29] MEDS: ACETAMINOPHEN 325 MG TAB PO PRN ×2 (13:08→22:22)
--- NOTE | 2017-06-29 16:44 | ASMTCMCOM ---
CM Note CM Note Notes: Pt admitted with upper GI bleed. S/p EGD today. Hx CAD, CABG, afib. Pt open with [facility] prior to admission. PT/OT evals pending. CM will follow for any d/c needs. Date Signed: 06/29/2017 04:43 PM Electronically Signed By:GERTRUDIS Lo
--- NOTE | 2017-06-29 19:42 | GCON ---
[f rep st] CONSULTATION CRITICAL CARE CONSULTATION DATE OF CONSULTATION: 06/29/2017 HISTORY OF PRESENT ILLNESS: This patient is a -dhak-wnu female, who had a mitral valve rep lacement and tricuspid valve repair by Dr. Mac at [facility] about a month ago. Her hospital cou rse was complicated by postoperative atrial fibrillation. She was placed on warfarin for this. She had a scheduled appointment to see her spray machine tender, Dr. Garcia today but was found to be nauseated an d having dry heaves without hematemesis and did complain of weakness, difficulty walking, and near sy ncope. She also had an INR of 6 yesterday. Because of this, she was brought to the emergency depart ment where she was given normal saline, Protonix, Kcentra, and vitamin K to reverse her INR. She sub sequently was observed overnight and underwent endoscopy this morning that showed a clean-based gastr ic ulcer with no stigmata of bleeding. Biopsies were taken. REVIEW OF SYSTEMS: Otherwise negative. PAST MEDICAL HISTORY: 1. Coronary artery disease. 2. Mitral valve disease. 3. Paroxysmal atrial fibrillation. PAST SURGICAL HISTORY: 1. CABG in 2004. 2. Mitral valve repair and tricuspid valve repair on May 30, 2017. SOCIAL HISTORY: She is a nonsmoker. No alcohol or IV drug use. FAMILY HISTORY: Noncontributory. MEDICATIONS: Currently amiodarone, Celexa, estradiol, Synthroid, Ativan, Zofran, pantoprazole, prava statin, Phenergan, and normal saline. PHYSICAL EXAMINATION: VITAL SIGNS: At the time of my visit, which was earlier this morning, she had a blood pressure of 104/63, heart rate was 82, respirations 20, oxygen saturation 98% on 1 L. GENER AL: She is very pleasant woman, in no apparent distress, able to speak in full sentences without usi ng accessory muscles for breathing. HEENT: Pupils equally round and reactive to light, nonicteric a nd noninjected. Mucous membranes were moist without erythema or exudate. NECK: Supple, without myrna nopathy or jugular vein distention. LUNGS: Breath sounds were clear to auscultation bilaterally wit hout wheezes, rubs, or rales. HEART: Regular rate and rhythm with 2/6 murmur. ABDOMEN: Obese, but soft and nontender, without hepatosplenomegaly. EXTREMITIES: Showed no clubbing, cyanosis, or dorinda a. NEUROLOGIC: Nonfocal, including cranial nerves, deep tendon reflexes. SKIN: Warm and dry witho ut evidence of rash. OBJECTIVE DATA: A white count of 14 when she came in, down to 8.1 today. Hematocrit was 32 on admis zohra, dropping to 22 prior to the EGD. Platelets were 368 and 210. INR was 1.22 today. Basic metab olic panel was normal. Her BUN was 57 on admission, dropped to 39 today. LFTs were normal. Occult blood was positive for blood. ASSESSMENT AND PLAN: Upper gastrointestinal bleed, probably due to this gastric ulcer complicated by a supratherapeutic INR and biopsies were taken. Will advance her diet per GI recommendations. Her INR has been fully reversed. She is in normal sinus rhythm now. We will have to have to figure out when to re-anticoagulate her under the guidance of Cardiology. Otherwise, she is hemodynamically sta ble. /[id number]/MODL
[2017-06-29] MEDS: PRAVASTATIN SODIUM 20 MG TAB PO SCH (20:40)
[2017-06-29] MEDS: CITALOPRAM 20 MG TAB PO SCH (20:40)
[2017-06-30] MEDS: PANTOPRAZOLE SODIUM 80 MG in NS 100 ML IV SCH ×2 (02:09→12:45)
[2017-06-30] MEDS: LEVOTHYROXINE 75 MCG TAB PO SCH (05:19)
[2017-06-30 05:20] LABS: % IMMATURE GRANULYOCYTES 1.2 % (0.0-1.1); ABSOLUTE IMMATURE GRANULOCYTES 0.08 10^3/uL (0.00-0.10); ADD DIFF? NO; ADD MORPH? NO; ADD SCAN? NO; ATYPICAL LYMPHOCYTE FLAG 10 (0-99); FRAGMENT RBC FLAG 0 (0-99); HEMATOCRIT 28.6 % (38.0-47.0); HEMOGLOBIN 9.3 g/dL (12.6-16.3); LEFT SHIFT FLG 10 (0-99); LIPEMIA HEMOLYSIS FLAG 80 (0-99); MEAN CELL HEMOGLOBIN 31.6 pg (27.9-34.1); MEAN CELL HEMOGLOBIN CONCENTR. 32.5 g/dL (32.4-36.7); MEAN CELL VOLUME 97.3 fL (81.5-99.8); MEAN PLATELET VOLUME 9.6 fL (8.7-11.7); PLATELET CLUMPS FLAG 0 (0-99); PLATELET COUNT 155 10^3/uL (150-400); RED BLOOD CELL COUNT 2.94 10^6/uL (4.18-5.33); RED CELL DISTRIBUTION WIDTH 16.9 % (11.5-15.2)
[2017-06-30] MEDS: NS 1,000 ML IV SCH (05:21)
[2017-06-30 05:58] LABS: ANION GAP 8 mEq/L (8-16); CALCIUM 8.5 mg/dL (8.5-10.4); CARBON DIOXIDE 21 mEq/l (22-31); CHLORIDE 112 mEq/L (97-110); CREATININE 0.7 mg/dL (0.6-1.0); GLOMERULAR FILTRATION RATE > 60; GLUCOSE 84 mg/dL (70-100); POTASSIUM 3.8 mEq/L (3.5-5.2); SODIUM 141 mEq/L (134-144)
[2017-06-30] MEDS: ESTRADIOL 1 MG TAB PO SCH (08:00)
[2017-06-30] MEDS: AMIODARONE HCL 200 MG TAB PO SCH (08:01)
[2017-06-30] MEDS: FERROUS SULFATE 325 MG TAB PO SCH (08:01)
[2017-06-30] MEDS: oxyCODONE IR 5 MG TAB PO PRN ×2 (08:17→16:33)
[2017-06-30] MEDS: ACETAMINOPHEN 325 MG TAB PO PRN ×2 (08:17→16:34)
--- NOTE | 2017-06-30 09:34 | SOAPPROG ---
JACK Progress Note Assessment/Plan: Assessment: 71 y/o woman s/p two lifetime sternotomies with recent BIOMVR and TV repair 05/31 with some PAF post op with normal LVEF now s/p UGIB. She appears to have stopped bleeding. In NSR. I's 4142 to O's 200cc. PLAN: 1)start Lasix 20mg PO qam 2)start KCL 20meq PO qam. 3)restart Pravastatin 20mg PO qhs. 4)no aldactone or coumadin 5)restart ASA 81mg PO qam when okay with GI service 6)probably out of ICU today to PCU and home ?Sunday 7)maybe restart Coumadin in 4-5 wks 06/30/17 09:31 Subjective: feels better. No more n/v or emesis. Denies CP, rest shortness of breath, palpitations or PND. Objective: Vital Signs Temp Pulse Resp BP Pulse Ox 36.8 C 76 18 135/56 H 95 06/30/17 08:00 06/30/17 08:00 06/30/17 08:00 06/30/17 08:00 06/30/17 08:00 Laboratory Results 06/30/17 04:57 06/30/17 04:57 06/29/17 06/30/17 07/01/17 05:59 05:59 05:59 Intake Total 2788.2 4142.8 Output Total 650 200 Balance 2138.2 3942.8 PT 15.4 SEC (12.0-15.0) H D 06/29/17 05:20 INR 1.22 (0.83-1.16) H 06/29/17 05:20 Physical Exam - Physical Exam General Appearance: alert EENT: normal ENT inspection Neck: non-tender Respiratory: lungs clear Cardiac/Chest: regular rate, rhythm, systolic murmur (1/6 CHICO heard), No gallop , No JVD Peripheral Pulses: 2+: carotid (R), carotid (L), femoral (R), femoral (L), dorsalis-pedis (R), dorsalis-pedis (L) Abdomen: non-tender, No rebound Skin: warm/dry Extremities: No pedal edema Neuro/Psych: oriented x 3 ICD10 Worksheet Patient Problems: Problems Problem Status Onset Over-anticoagulated Acute Upper GI hemorrhage Acute
--- NOTE | 2017-06-30 09:45 | HOSPPROG ---
Hospitalist Progress Note Assessment/Plan: # UGIB s/p EGD with non-bleeding gastric ulcer - will clarify if this was the source or not - cont protonix - cardiology rec's asa for CVA prophylaxis # ABLA - s/p 2U PRBC # coagulopathy - reversed # a-fib, currently in sinus - cont amiodarone, hold CVA ppx for now - lasix restarted # VHD - recent bioprosthetic MVR with TV repair # CAD - no angina # dispo - to PCU Subjective: no further bleeding overnight Objective: Vital Signs Temp Pulse Resp BP Pulse Ox 36.8 C 76 18 135/56 H 95 06/30/17 08:00 06/30/17 08:00 06/30/17 08:00 06/30/17 08:00 06/30/17 08:00 Laboratory Results 06/30/17 04:57 06/30/17 04:57 06/29/17 06/30/17 07/01/17 05:59 05:59 05:59 Intake Total 2788.2 4142.8 Output Total 650 200 Balance 2138.2 3942.8 PT 15.4 SEC (12.0-15.0) H D 06/29/17 05:20 INR 1.22 (0.83-1.16) H 06/29/17 05:20 high risk with UGIB - Physical Exam Constitutional: no apparent distress, appears nourished Cardiovascular: regular rate and rhythym, no murmur, rub, or gallop Respiratory: no respiratory distress, no rales or rhonchi, clear to auscultation Gastrointestinal: normoactive bowel sounds, soft, non-tender abdomen, no palpable masses ICD10 Worksheet Patient Problems: Problems Problem Status Onset Upper GI hemorrhage Acute Over-anticoagulated Acute
[2017-06-30] MEDS: FUROSEMIDE 20 MG TAB PO SCH (10:02)
[2017-06-30] MEDS: POTASSIUM CL 20 MEQ TAB PO SCH (10:02)
--- NOTE | 2017-06-30 11:26 | SOAPPROG ---
JACK Progress Note Assessment/Plan: Assessment: 1. with secondary bleed; improved. No further bleeding. 2. Post-hemorrhagic anemia; improved. Plan: 1. D/C IV PPI. 2. Protonix 40 mg PO BID x 2 months. 3. Regular diet. 4. I will sign off today; we will F/U as an outpatient and check on gastric biopsy to confirm no H. pylori and set up F/U EGD in 2 months to confirm healed. 5. Patient can be discharged from GI standpoint later today or in am. Celso Hill MD 06/30/17 11:36 Subjective: CC: with bleed. Interval HPI: Patient without melena or nausea or abdominal pain. Objective: Vital Signs Temp Pulse Resp BP Pulse Ox 36.6 C 71 16 130/72 H 89 L 06/30/17 10:45 06/30/17 10:45 06/30/17 10:45 06/30/17 10:45 06/30/17 10:45 Laboratory Results 06/30/17 04:57 06/30/17 04:57 06/29/17 06/30/17 07/01/17 05:59 05:59 05:59 Intake Total 2788.2 4142.8 Output Total 650 200 355 Balance 2138.2 3942.8 -355 PT 15.4 SEC (12.0-15.0) H D 06/29/17 05:20 INR 1.22 (0.83-1.16) H 06/29/17 05:20 Physical Exam - Physical Exam General Appearance: WD/WN, alert, no apparent distress Respiratory: lungs clear, normal breath sounds Cardiac/Chest: regular rate, rhythm Abdomen: normal bowel sounds, non-tender, soft Skin: normal color, warm/dry Neuro/Psych: alert, normal mood/affect, oriented x 3 ICD10 Worksheet Patient Problems: Problems Problem Status Onset Over-anticoagulated Acute Upper GI hemorrhage Acute
--- NOTE | 2017-06-30 14:27 | PDINTPN ---
Press Tender [employer] Progress Note Assessment/Plan: Assessment/plan: 71 F s/p revcent tissue MVR and TV annuloplasty dc'd on coumadin but developed near syncope at cardiology followup and found to have INR 6 and anemia. Underwent EGD showing after treated with FFP, vitamin K. * UGIB- currently stable and agree with advancing diet. * PAF- not sure if/when she should resume anticoag but will defer to cards. * OK for PCU * Subjective: stable overnight with no further evidence of bleeding Objective: Vital Signs Temp Pulse Resp BP Pulse Ox 36.6 C 71 16 130/72 H 89 L 06/30/17 10:45 06/30/17 10:45 06/30/17 10:45 06/30/17 10:45 06/30/17 10:45 Laboratory Results 06/30/17 04:57 06/30/17 04:57 06/29/17 06/30/17 07/01/17 05:59 05:59 05:59 Intake Total 2788.2 4142.8 Output Total 650 200 355 Balance 2138.2 3942.8 -355 PT 15.4 SEC (12.0-15.0) H D 06/29/17 05:20 INR 1.22 (0.83-1.16) H 06/29/17 05:20 Physical Exam - Physical Exam General Appearance: WD/WN, alert, obese EENT: PERRL/EOMI Neck: supple Respiratory: lungs clear, normal breath sounds, No respiratory distress Cardiac/Chest: regular rate, rhythm, No edema Abdomen: normal bowel sounds, non-tender, soft, No distended Skin: normal color, warm/dry Lymphatic: no adenopathy Extremities: No pedal edema Neuro/Psych: alert, normal mood/affect, oriented x 3 ICD10 Worksheet Patient Problems: Problems Problem Status Onset Over-anticoagulated Acute Upper GI hemorrhage Acute
--- NOTE | 2017-06-30 15:19 | ASMTCMCOM ---
CM Note CM Note Notes: Reviewed chart re: d/c poc, pt's progress. Pt w/ hx of CAD, CABG, afib w/ recent tissue MVR and TV annuloplasty. Pt admitted w/ elevated INR and anemia, found to have a UGIB. Per CM notes, pt open w/ [facility] prior to admit. OT cleared, PT evals pending. Anticipate pt will likely d/c home w/ resumption of [facility] services. CM will cont to follow. Date Signed: 06/30/2017 03:19 PM Electronically Signed By:Lindsey Velázquez RN
[2017-06-30] MEDS: PRAVASTATIN SODIUM 20 MG TAB PO SCH (21:32)
[2017-06-30] MEDS: PANTOPRAZOLE SODIUM 40 MG TAB PO SCH (21:32)
[2017-06-30] MEDS: CITALOPRAM 20 MG TAB PO SCH (21:33)
[2017-07-01 04:18] VITALS: RESP 16
[2017-07-01] MEDS: LEVOTHYROXINE 75 MCG TAB PO SCH (06:14)
[2017-07-01 07:14] VITALS: BP 141/79; PULSE 77; TEMP 98.5; O2SAT 94
[2017-07-01 07:50] LABS: % IMMATURE GRANULYOCYTES 0.7 % (0.0-1.1); ABSOLUTE IMMATURE GRANULOCYTES 0.04 10^3/uL (0.00-0.10); ADD DIFF? NO; ADD MORPH? NO; ADD SCAN? NO; ATYPICAL LYMPHOCYTE FLAG 0 (0-99); FRAGMENT RBC FLAG 0 (0-99); HEMATOCRIT 32.1 % (38.0-47.0); HEMOGLOBIN 10.4 g/dL (12.6-16.3); LEFT SHIFT FLG 0 (0-99); LIPEMIA HEMOLYSIS FLAG 80 (0-99); MEAN CELL HEMOGLOBIN 31.7 pg (27.9-34.1); MEAN CELL HEMOGLOBIN CONCENTR. 32.4 g/dL (32.4-36.7); MEAN CELL VOLUME 97.9 fL (81.5-99.8); MEAN PLATELET VOLUME 9.9 fL (8.7-11.7); PLATELET CLUMPS FLAG 0 (0-99); PLATELET COUNT 160 10^3/uL (150-400); RED BLOOD CELL COUNT 3.28 10^6/uL (4.18-5.33); RED CELL DISTRIBUTION WIDTH 16.2 % (11.5-15.2)
--- NOTE | 2017-07-01 08:20 | SOAPPROG ---
JACK Progress Note Assessment/Plan: Assessment: 71 y/o woman s/p two lifetime sternotomies with recent BIOMVR and TV repair 05/31 with some PAF post op with normal LVEF now s/p UGIB. She appears to have stopped bleeding. In NSR. Hct stable. No clinic signs of more GI bleeding. BP okay, in NSR and euvolemic. REC: 1)no change in current cardiac meds (would not add back Aldactone or Coumadin). 2)Okay to discharge home today from cardiac standpoint. 3)will arrive follow up with me in four weeks with ecg and address whether to restart Coumadin or reversible Pradaxa then. Thanks. Will sign off. 07/01/17 08:17 Subjective: overall she feels stronger. Denies N/V/more melena. Denies CP, PND or palpitations. Walked in hallways without sx. Objective: Vital Signs Temp Pulse Resp BP Pulse Ox 36.9 C 77 16 141/79 H 94 07/01/17 07:12 07/01/17 07:12 07/01/17 07:12 07/01/17 07:12 07/01/17 07:12 Laboratory Results 07/01/17 07:40 06/30/17 04:57 06/30/17 07/01/17 07/02/17 05:59 05:59 05:59 Intake Total 4142.8 550 Output Total 200 355 Balance 3942.8 195 PT 15.4 SEC (12.0-15.0) H D 06/29/17 05:20 INR 1.22 (0.83-1.16) H 06/29/17 05:20 Physical Exam - Physical Exam General Appearance: alert EENT: normal ENT inspection Neck: non-tender Respiratory: lungs clear Cardiac/Chest: regular rate, rhythm, systolic murmur (1/6 CHICO heard with positive S4 but no S3.) Peripheral Pulses: 2+: carotid (R), carotid (L), femoral (R), femoral (L), dorsalis-pedis (R), dorsalis-pedis (L) Abdomen: non-tender, No guarding, No rebound Skin: warm/dry Extremities: No pedal edema Neuro/Psych: oriented x 3 ICD10 Worksheet Patient Problems: Problems Problem Status Onset Over-anticoagulated Acute Upper GI hemorrhage Acute
[2017-07-01] MEDS: ESTRADIOL 1 MG TAB PO SCH (08:28)
[2017-07-01] MEDS: FUROSEMIDE 20 MG TAB PO SCH (08:28)
[2017-07-01] MEDS: POTASSIUM CL 20 MEQ TAB PO SCH (08:29)
[2017-07-01] MEDS: PANTOPRAZOLE SODIUM 40 MG TAB PO SCH (08:29)
[2017-07-01] MEDS: FERROUS SULFATE 325 MG TAB PO SCH (08:29)
[2017-07-01] MEDS: AMIODARONE HCL 200 MG TAB PO SCH (08:29)
--- NOTE | 2017-07-01 09:34 | PDIAF ---
- Diagnosis Diagnosis: GI Bleed Code Status: Full Code - Medication Management Discharge Medications: Medications to Continue on Transfer Citalopram [celeXA 20 MG (RX)] 20 mg PO HS 11/21/11 [Last Taken 06/27/17] Acetaminophen [Tylenol 325mg (*)] 325 mg PO Q4H PRN 06/28/17 [Last Taken ] Amiodarone HCl [Pacerone (*)] 200 mg PO DAILY 06/28/17 [Last Taken 06/28/17] Aspirin [Aspirin 81mg (*)] 81 mg PO DAILY 06/28/17 [Last Taken 06/28/17] Cholecalciferol Vit D3 [Vitamin D3 (*)] 5,000 units PO HS 06/28/17 [Last Taken 06/27/17] Estradiol [Estradiol 1 MG (*)] 0.5 mg PO DAILY 06/28/17 [Last Taken 06/28/17] Ferrous Sulfate [Ferrous Sulf 325 MG (*)] 325 mg PO DAILY 06/28/17 [Last Taken 06/28/17] LORazepam [Lorazepam] 0.5 mg PO HS PRN 06/28/17 [Last Taken Unknown] Levothyroxine [Synthroid 75 mcg (*)] 75 mcg PO DAILY06 06/28/17 [Last Taken ] Pravastatin Sodium 20 mg PO HS 06/28/17 [Last Taken 06/27/17] oxyCODONE IR [Oxycodone Ir (*)] 5 mg PO Q4H PRN 06/28/17 [Last Taken 06/28/17] Furosemide [Lasix 20 MG (*)] 20 mg PO DAILY #30 tab 07/01/17 [Last Taken Unknown ] Pantoprazole Sodium [Protonix 40mg (*)] 40 mg PO BID #60 tab 07/01/17 [Last Taken Unknown] Potassium Chloride 20 meq PO DAILY #30 tab.er.prt 07/01/17 [Last Taken Unknown] Discharge Medications: Refer to the Discharge Home Medication list for PRN reason. - Orders Services needed: Home Care, Registered Nurse, Physical Therapy, Occupational Therapy Home Care Face to Face: I certify that this patient was under my care and that I had the required [id number] encounter meeting the encounter requirements on the discharge day. My findings support the fact that the patient is homebound as defined in Home Care Face to Face Continued: [facility] Chapter 7 Medicare Benefits Manual 30.1.1 , The condition of the patient is such that there exists a normal inability to leave home and consequently, leaving home would require a considerable and taxing effort. - Follow Up Care Current Providers and Referrals: NONE *PRIMARY CARE P,. [Primary Care Provider] - As per Instructions
--- NOTE | 2017-07-01 11:53 | GDS ---
[f rep st] DISCHARGE SUMMARY ALL DIAGNOSES: 1. Upper gastrointestinal bleed due to gastric ulcer. 2. Acute blood loss anemia status post transfusion of 2 units of packed red blood cells. 3. Coagulopathy. 4. Atrial fibrillation. 5. Recent mitral valve replacement with a bioprosthetic, as well as tricuspid valve repair. 6. Coronary artery disease. HOSPITAL COURSE: A 71-year-old female admitted with melena. Upper endoscopy showed a gastric ulcer. This was biopsied; path is pending at this time. Post EGD, she has done well. She is eating and nani ating a full diet. Hemoglobin on the day of discharge is 10.4, which is actually climbing from her pr evious. Her INR on admission was 5.98, this was reversed down to 1.2 the following day. She is discharged in stable condition. DISCHARGE MEDICATIONS: Medication changes include addition of Protonix 40 mg b.i.d. for 2 months, de crease furosemide, hold Coumadin, continue aspirin, discontinue Aldactone. FOLLOWUP: 1. GI for EGD in 2 months, as well as sooner followup to review her biopsy results. 2. Follow up with Dr. Garcia in 4 weeks to address anticoagulation. STUDIES PENDING AT THE TIME OF DISCHARGE: Pathology from gastric ulcer. BILLING: I spent more than 30 minutes on the day of discharge coordinating care. /[id number]/MODL
--- NOTE | 2017-07-01 12:34 | ASDISCHSUM ---
Discharge Information Plan Status:Home with Home Health Medically Cleared to Leave:07/01/2017 Discharge Date:07/01/2017 09:59 AM CM D/C Disposition:Home Health Service [facility] D/C Disposition:Home, Routine, Self-Care Projected Discharge Date:07/01/2017 12:00 AM Transportation at D/C:Family Discharge Delay Reason: Follow-Up Date:07/01/2017 12:00 AM Discharge Slot:2 - 12:01 pm - 18:00 pm Final Diagnosis:UGIB, acute blood loss anemia, coagulopathy, afib, recent MVR, CAD Placement Information Patient Contact Information Contact Name:BLANK Relationship: Address:[address] City:[place] Alternate Phone: State/Zip Code:[place] [address] Email: Financial Information Financial Class:Medicare Advantage Plans Primary Plan Desc:[employer] Primary Plan Number:[id number] Secondary Plan Desc: Secondary Plan Number: Assessment Information [facility] CM Progress Note CM Note CM Note Notes: Pt admitted with upper GI bleed. S/p EGD today. Hx CAD, CABG, afib. Pt open with [facility] prior to admission. PT/OT evals pending. CM will follow for any d/c needs. Date Signed: 06/29/2017 04:43 PM Electronically Signed By:GERTRUDIS Lo [facility] CM Progress Note CM Note CM Note Notes: Reviewed chart re: d/c poc, pt's progress. Pt w/ hx of CAD, CABG, afib w/ recent tissue MVR and TV annuloplasty. Pt admitted w/ elevated INR and anemia, found to have a UGIB. Per CM notes, pt open w/ [facility] prior to admit. OT cleared, PT evals pending. Anticipate pt will likely d/c home w/ resumption of [facility] services. CM will cont to follow. Date Signed: 06/30/2017 03:19 PM Electronically Signed By:Lindsey Velázquez RN BC CM Progress Note CM Note CM Note Notes: Reviewed chart, spoke ruddy/ NALLELY Estrada re: d/c poc, pt's progress. Pt to discharge home w/ [facility] (RN/PT/OT) services. Pt open w/ [facility] prior to admit. Attempted to meet w/ pt to discuss current needs; pt left quickly w/o signing IM and before CM could meet w/ her. Call placed to Carolyn / [facility]; Carolyn unable to locate pt on current list. Call placed to Maria M at home [phone]; Maria M confirmed she was receiving RN/PT services as recently as last wk; Susan is her RN. Pt reports having frequent lab work, wound monitoring for MVR, vitals, etc. Update provided to Carolyn. [facility] to re-open pt's case w/ a start of care date for 07/02/17. Update provided to pt. Discharge orders/paperwork received by Ann. Sean RN to call report to [phone]. CM avail for any further issues or concerns. Date Signed: 07/01/2017 12:33 PM Electronically Signed By:Lindsey Velázquez RN Intervention Information
--- NOTE | 2017-07-01 12:34 | ASMTCMCOM ---
CM Note CM Note Notes: Reviewed chart, spoke w/ NALLELY Estrada re: d/c poc, pt's progress. Pt to discharge home w/ [facility] (RN/PT/OT) services. Pt open w/ [facility] prior to admit. Attempted to meet w/ pt to discuss current needs; pt left quickly w/o signing IM and before CM could meet w/ her. Call placed to Carolyn w/ [facility]; Carolyn unable to locate pt on current list. Call placed to Maria M at home [phone]; Maria M confirmed she was receiving RN/PT services as recently as last wk; Susan is her RN. Pt reports having frequent lab work, wound monitoring for MVR, vitals, etc. Update provided to Carolyn. [facility] to re-open pt's case w/ a start of care date for 07/02/17. Update provided to pt. Discharge orders/paperwork received by Carolyn. NALLELY Estrada to call report to [phone]. CM avail for any further issues or concerns. Date Signed: 07/01/2017 12:33 PM Electronically Signed By:Lindsey Velázquez RN
== END 2017-07-01 09:59 | disposition home health service (06) | DRG 378 ==
LOC: F2N 18:46 → F2W 06-30 10:42
PROVIDERS: ADMIT Internal Medicine; ATTEND Internal Medicine
PROC: 30283B1 Transfusion of Nonautologous 4-Factor Prothrombin Complex Concentrate into Vein, Percutaneous Approach (ICD-10-PCS; principal; 2017-06-28)
PROC: 0DB68ZX Excision of Stomach, Via Natural or Artificial Opening Endoscopic, Diagnostic (ICD-10-PCS; 2017-06-29)
PROC: 30233N1 Transfusion of Nonautologous Red Blood Cells into Peripheral Vein, Percutaneous Approach (ICD-10-PCS; 2017-06-29)
DX: K28.4 Chronic or unspecified gastrojejunal ulcer with hemorrhage (principal); D62 Acute posthemorrhagic anemia; I48.91 Unspecified atrial fibrillation; I25.10 Atherosclerotic heart disease of native coronary artery without angina pectoris; Z95.3 Presence of xenogenic heart valve; Z95.1 Presence of aortocoronary bypass graft; Z87.891 Personal history of nicotine dependence; Z79.01 Long term (current) use of anticoagulants; E86.1 Hypovolemia
CPT/HCPCS: 82947-QW; 96365; 97165-GO; C9132; G8987-GO-CI; G8989-GO-CH; J2250; J2405; J2704; J3430; P9016

== ENCOUNTER → 2017-07-06 | Outpatient (CLI) | payer OTHER ==
[~2017-07-06] MED LIST: LIDOCAINE 1% 300 MG/30 ML SDV ONE
== END ==
LOC: FIMAGING 13:32
PROVIDERS: ATTEND Internal Medicine
PROC: 0W993ZZ Drainage of Right Pleural Cavity, Percutaneous Approach (ICD-10-PCS; principal; 2017-07-06)
DX: J90 Pleural effusion, not elsewhere classified (principal)

== ENCOUNTER → 2017-12-31 | Outpatient (CLI) | payer OTHER | LOC: FIMAGING 13:09 | PROVIDERS: ATTEND Obstetrics & Gynecology Gynecology | DX: Z12.31 Encounter for screening mammogram for malignant neoplasm of breast (principal); Z80.3 Family history of malignant neoplasm of breast ==